=== PATIENT | female | born 1950 | race African-American/Black ===

== ENCOUNTER 2016-12-01 14:17 | Inpatient (IN) | payer OTHER ==
[~2016-12-01] VITALS: Ht 160 cm; Wt 107.2 kg
[~2016-12-01 14:17] MED LIST: ASPIRIN325 MG PO
[2016-12-01 15:04] LABS: HEMATOCRIT 25.2 % (36.0-46.0); MCH 24.9 PG (29.0-34.0); MCHC 30.2 G/DL (30.0-36.0); MCV 82.6 FL (83-99); MEAN PLAT.VOLUME 10.9 uM^3 (9.5-12.4); PLATELET COUNT 175 K/uL (156-360); RBC DIS.WIDTH-SD 45.5 % (39-53); RED BLOOD COUNT 3.05 M/uL (3.80-5.20); WHITE BLOOD COUNT 6.5 K/uL (4.1-10.2)
[2016-12-01 15:11] LABS: CHLORIDE 107 mEq/L (99-109); POTASSIUM 3.4 mEq/L (3.7-5.4); SODIUM 142 mEq/L (136-147)
[2016-12-01 15:14] LABS: GLUCOSE 94 mg/dL (70-99)
[2016-12-01 15:15] LABS: ANION GAP 11 MEQ/L (2-14); TOTAL BILIRUBIN 0.3 mg/dL (0.0-1.0)
[2016-12-01 15:16] LABS: SERUM ETHYL ALCOHOL < 10 mg/dL
[2016-12-01 15:17] LABS: ALKALINE PHOSPHATASE 114 IU/L (3-129); GFR ESTIMATE (CALCULATED) > 59 mL/min/
[2016-12-01 15:18] LABS: UREA NITROGEN (BUN) 15 mg/dL (9-23)
[2016-12-01 16:18] LABS: ADD MIUA? YES; BILIRUBIN NEGATIVE; BLOOD SMALL; COLOR YELLOW ((YELLOW)); GLUCOSE (STRIP) NEGATIVE; KETONES NEGATIVE; LEUKOCYTES NEGATIVE; NITRITE NEGATIVE; PROTEIN (STRIP) NEGATIVE; SPECIFIC GRAVITY 1.012 (1.000-1.030)
[2016-12-01 16:26] LABS: AMPHETAMINE NEGATIVE (500 ng/mL); BARBITURATES NEGATIVE (200 ng/mL); BENZODIAZEPINES NEGATIVE (150 ng/mL); COCAINE NEGATIVE (150 ng/mL); INTERNAL CONTROLS VALID? YES; METHADONE NEGATIVE (200 ng/mL); METHAMPHETAMINE NEGATIVE (500 ng/mL); OPIATES (MORPHINE) NEGATIVE (100 ng/mL); OXYCODONE NEGATIVE (100 ng/mL); PHENCYCLIDINE NEGATIVE (25 ng/mL); PROPOXYPHENE NEGATIVE (300 ng/mL); THC CANNABINOIDS NEGATIVE (50 ng/mL); TRICYCLIC ANTIDEPRESSANTS NEGATIVE (300 ng/mL)
[2016-12-01 17:02] LABS: BACTERIA RARE /HPF; CASTS NONE SEEN /LPF; CRYSTALS NONE SEEN; EPITHELIAL CELLS 1+ /HPF; MUCUS NONE SEEN /LPF; RED BLOOD CELLS RARE /HPF (0-5); WHITE BLOOD CELLS RARE /HPF (0-5)
[2016-12-01 22:00] VITALS: BP 200/91
[2016-12-01 22:16] VITALS: BP 169/81
[2016-12-01 23:16] VITALS: BP 140/74
[2016-12-02 00:44] VITALS: BP 186/90
[2016-12-02 00:58] VITALS: BP 193/96
[2016-12-02 01:11] VITALS: BP 186/79
[2016-12-02 02:39] VITALS: BP 182/72
[2016-12-02 05:53] LABS: HEMATOCRIT 30.5 % (36.0-46.0); MCV 85.2 FL (83-99)
[2016-12-02 06:19] LABS: ANION GAP 10 MEQ/L (2-14); CHLORIDE 105 MEQ/L (99-109); GFR ESTIMATE (CALCULATED) > 59 mL/min/; GLUCOSE 76 mg/dL (70-99); POTASSIUM 3.2 MEQ/L (3.7-5.4); SAMPLE HEMOLYSIS CHECK 0; SAMPLE ICTERIC CHECK 0; SAMPLE LIPEMIA CHECK 0; SODIUM 139 MEQ/L (136-147); UREA NITROGEN (BUN) 10 mg/dL (9-23)
[2016-12-02 07:40] VITALS: BP 180/90
[2016-12-02 08:19] LABS: INTER. NORMALIZED RATIO 1.1; PROTHROMBIN TIME 11.7 (9.2-11.2)
[2016-12-02 08:38] LABS: IRON 141 MCG/DL (35-150)
[2016-12-02 09:12] LABS: FERRITIN 4 NG/ML (10-291)
[2016-12-02 15:36] VITALS: BP 180/92
[2016-12-02 20:24] LABS: HEMATOCRIT 35.6 % (36.0-46.0); MCV 85.4 FL (83-99)
[2016-12-03] VITALS: BP 196/80
[2016-12-03 07:48] VITALS: BP 190/84
[2016-12-03 08:41] LABS: HEMATOCRIT 34.4 % (36.0-46.0); MCV 84.9 FL (83-99)
[2016-12-03 08:55] LABS: HEMATOCRIT 34.1 % (36.0-46.0); MCH 26.9 PG (29.0-34.0); MCHC 31.7 G/DL (30.0-36.0); MCV 84.8 FL (83-99); MEAN PLAT.VOLUME 9.8 uM^3 (9.5-12.4); RBC DIS.WIDTH-CV 15.2 % (11.8-14.6); RBC DIS.WIDTH-SD 46.5 % (39-53); WHITE BLOOD COUNT 7.6 K/uL (4.1-10.2)
[2016-12-03 09:01] LABS: PLATELET COUNT 366 K/uL (156-360); RED BLOOD COUNT 4.02 M/uL (3.80-5.20)
[2016-12-03 09:05] LABS: ANION GAP 6 MEQ/L (2-14); CHLORIDE 102 MEQ/L (99-109); GFR ESTIMATE (CALCULATED) > 59 mL/min/; GLUCOSE 84 mg/dL (70-99); SAMPLE HEMOLYSIS CHECK 1; SAMPLE ICTERIC CHECK 0; SAMPLE LIPEMIA CHECK 0; SODIUM 137 MEQ/L (136-147); UREA NITROGEN (BUN) 5 mg/dL (9-23)
[2016-12-03 09:06] LABS: POTASSIUM 4.1 MEQ/L (3.7-5.4)
[2016-12-03 11:03] LABS: POC NON-PRINT COM 1 ND
[2016-12-03 15:07] VITALS: BP 139/66
[2016-12-03 21:12] LABS: HEMATOCRIT 34.5 % (36.0-46.0)
[2016-12-03 21:43] VITALS: BP 191/85
[2016-12-03 23:22] VITALS: BP 178/80
[2016-12-04 08:33] VITALS: BP 162/82
[2016-12-04 10:36] LABS: MCH 26.5 PG (29.0-34.0); MCHC 30.9 G/DL (30.0-36.0); MCV 85.6 FL (83-99); MEAN PLAT.VOLUME 9.9 uM^3 (9.5-12.4); PLATELET COUNT 297 K/uL (156-360); RBC DIS.WIDTH-CV 15.1 % (11.8-14.6); RBC DIS.WIDTH-SD 47.5 % (39-53); RED BLOOD COUNT 3.74 M/uL (3.80-5.20); WHITE BLOOD COUNT 6.2 K/uL (4.1-10.2)
[2016-12-04 11:01] LABS: ANION GAP 11 MEQ/L (2-14); CHLORIDE 105 MEQ/L (99-109); GFR ESTIMATE (CALCULATED) > 59 mL/min/; GLUCOSE 74 mg/dL (70-99); POTASSIUM 3.8 MEQ/L (3.7-5.4); SAMPLE HEMOLYSIS CHECK 0; SAMPLE ICTERIC CHECK 0; SAMPLE LIPEMIA CHECK 0; SODIUM 140 MEQ/L (136-147); UREA NITROGEN (BUN) 5 mg/dL (9-23)
[2016-12-05 00:15] VITALS: BP 192/84
[2016-12-05 08:10] VITALS: BP 158/64
[2016-12-05] MEDS ORDERED: AMLODIPINE BESYL5 MG PO (08:22)
[2016-12-05] MEDS ORDERED: PROTONIX40 MG PO (08:22)
[2016-12-05] MEDS ORDERED: BISOPROLOL-HCT1 EACH PO (08:22)
[2016-12-05] MEDS ORDERED: LIDOCAINE700 MG TD (09:45)
[2016-12-05 10:30] LABS: HEMATOCRIT 35.2 % (36.0-46.0); MCH 26.5 PG (29.0-34.0); MCHC 31.3 G/DL (30.0-36.0); MCV 84.8 FL (83-99); PLATELET COUNT 357 K/uL (156-360); RBC DIS.WIDTH-CV 15.3 % (11.8-14.6); RBC DIS.WIDTH-SD 46.5 % (39-53); RED BLOOD COUNT 4.15 M/uL (3.80-5.20); WHITE BLOOD COUNT 7.4 K/uL (4.1-10.2)
== END 2016-12-05 15:23 | disposition home or self-care (01) | DRG 378 ==
LOC: EME 14:17 → EDOF 23:22 → 5SOUTH 23:22
PROVIDERS: Emergency Medicine; Internal Medicine; Internal Medicine Gastroenterology; Nurse Practitioner Adult Health
DX: K57.31 Diverticulosis of large intestine without perforation or abscess with bleeding (principal); K25.9 Gastric ulcer, unspecified as acute or chronic, without hemorrhage or perforation; D62 Acute posthemorrhagic anemia; E87.6 Hypokalemia; I10 Essential (primary) hypertension; D25.9 Leiomyoma of uterus, unspecified; E66.01 Morbid (severe) obesity due to excess calories; Z68.41 Body mass index [BMI] 40.0-44.9, adult; F22 Delusional disorders; F60.9 Personality disorder, unspecified; K59.00 Constipation, unspecified; N28.1 Cyst of kidney, acquired; M19.90 Unspecified osteoarthritis, unspecified site; M25.562 Pain in left knee; M25.662 Stiffness of left knee, not elsewhere classified; Z79.82 Long term (current) use of aspirin; Z87.891 Personal history of nicotine dependence; Z91.19 Patient's noncompliance with other medical treatment and regimen
CPT/HCPCS: 73560; 74177; 74241; 76856; 80048; 80053; 80069; 81003; 82272; 82607; 82728; 82746; 83540; 84466; 85014; 85018; 85027; 85610; 86900; 86901; 86920; 88305; 88342 TC; 99281; 99285; C9113; G0480; J3010; J7030; P9016